=== PATIENT | male | born 1985 ===

== ENCOUNTER 2021-03-18 04:31 | Emergency (ER) | payer SELFPAY ==
--- NOTE | 2021-03-18 05:40 | XRay Report ---
Right hand-3 views INDICATION: LAC. COMPARISON: None available. IMPRESSION: Soft tissue laceration involving the ring finger with surrounding soft tissue swelling a nd bandaging. No radiopaque foreign body or fracture identified. Normal alignment. No significant DJ DSima Signer Name: Paul Nicholas MD Signed: 03/18/2021 5:35 AM Workstation Name: [id number]
--- NOTE | 2021-03-18 06:28 | Emergency Department Report ---
ED Laceration HPI - HPI Chief Complaint: Wound/Laceration Stated Complaint: RIGHT HAND LAC Time Seen by Provider: 03/18/21 05:10 Occurred When: Today Location: Upper Extremity Severity: mild Tetanus Status: Up to Date Laceration Symptoms: Yes Pain, No Foreign Body Sensation, No Numbness, No Weakness Other History: Hit glass with hand causing laceration to the right hand proximal interphalangeal joint with ED Review of Systems ROS: Stated complaint: RIGHT HAND LAC Other details as noted in HPI Comment: All other systems reviewed and negative ED Past Medical Hx - Past Medical History Previous Medical History?: No - Surgical History Past Surgical History?: No Laceration Physical Exam - Exam General: Vital signs noted. No distress. Alert and acting appropriately. Wound Length (cm): 0 (1.5 cm) Laceration Location: Upper Extremity Full Body Front + Back: 1 - Laceration to this region across the proximal and interphalangeal joint dorsal side Laceration Exam: Yes Normal Distal CMS, No Foreign Body, No Exposed Tendon, Vessel, or Nerve, No Tendon Injury ED Course Vital Signs 03/18/21 04:44 Temperature 97.8 F Pulse Rate 86 Respiratory 18 Rate Blood Pressure 183/78 [Right] O2 Sat by Pulse 100 Oximetry - Laceration /Wound Repair Right Finger Wound Location: upper extremity Wound's Depth, Shape: irregular Wound Explored: clean Irrigated w/ Saline (ccs): 40 Betadine Prep?: Yes Anesthesia: 1% Lidocaine Volume Anesthetic (ccs): 2 Wound Repaired With: sutures Suture Size/Type: 5:0 Number of Sutures: 5 Critical care attestation.: If time is entered above; I have spent that time in minutes in the direct care o f this critically ill patient, excluding procedure time. ED Disposition Clinical Impression: Finger laceration Disposition: 01 HOME / SELF CARE / HOMELESS Is pt being admited?: No Does the pt Need Aspirin: No Condition: Stable Instructions: Sutured Wound Care, Sutures, [place], or Adhesive Wound Closure, [id number] Additional Instructions: Please keep wound clean and dry as we discussed sutures are dissolvable so no need to return for suture removal Referrals: [facility] [Provider Group] - 3-5 Days
[2021-03-18 07:23] VITALS: BP 132/86
== END 2021-03-18 07:24 | disposition home or self-care (01) ==
LOC: ED 04:31
DX: S61.214A Laceration without foreign body of right ring finger without damage to nail, initial encounter (principal); W25.XXXA Contact with sharp glass, initial encounter; Y93.89 Activity, other specified; Y92.89 Other specified places as the place of occurrence of the external cause; Y99.8 Other external cause status
CPT/HCPCS: 99283